=== PATIENT | male | born 1985 | race American Indian/Alaskan Native ===

== ENCOUNTER 2020-12-24 10:55 | Emergency (ER) | payer BC ==
[2020-12-24 11:02] VITALS: BP 130/80
[2020-12-24] MEDS ORDERED: TETANUS,DIPH,PERTUSS(ACELL) VACCINE 0.5 ML SYRINGE IM ONE (11:07)
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
== END 2020-12-24 11:40 | disposition home or self-care (01) ==
LOC: ED 10:55
DX: S41.012A Laceration without foreign body of left shoulder, initial encounter (principal); X99.1XXA Assault by knife, initial encounter; Y93.89 Activity, other specified; Y92.89 Other specified places as the place of occurrence of the external cause; Y99.8 Other external cause status
CPT/HCPCS: 90471; 90715; 99282